=== PATIENT | male | born 1945 | race Caucasian/White ===

== ENCOUNTER 2017-11-27 09:18 | Outpatient (CLI) | payer MEDICARE, OTHER ==
[~2017-11-27 09:18] MED LIST: ASPI-1169 PO; CARV25TA PO; RAMI5CAP30 PO
[2017-11-27] MEDS ORDERED: IOHEXOL-350 100 ML VIAL IV ONE (09:55)
[2017-11-27] MEDS ORDERED: CT SWABBABLE VALVE TRANS SET 1 EA INFUS.SET MC ONE (09:55)
[2017-11-27 10:20] LABS: CALCIUM, SERUM 8.7 mg/dL (8.5-10.1); CARBON DIOXIDE 26 mmol/L (21-32); CHLORIDE 107 mmol/L (98-107); GLUCOSE 112 mg/dL (74-106); POTASSIUM 3.5 mmol/L (3.5-5.1); SODIUM SERUM 141 mmol/L (136-145); UREA NITROGEN, BLOOD 18 mg/dL (7-18)
== END 2017-11-27 23:59 | disposition home or self-care (01) ==
LOC: CT 09:18
PROVIDERS: ATTEND Internal Medicine Interventional Cardiology
DX: I25.10 Atherosclerotic heart disease of native coronary artery without angina pectoris (principal); M47.894 Other spondylosis, thoracic region
CPT/HCPCS: 36415; 75574; 80048; Q9967

== ENCOUNTER 2021-05-26 17:49 | Inpatient (IN) | payer MEDICARE, OTHER ==
[~2021-05-26] VITALS: Ht 170.2 cm; Wt 81.6 kg
--- NOTE | 2021-05-26 17:57 | NUR ---
TO ER BED 1, C/O INTERMITTENT CHEST PAIN SINCE LAST NIGHT BUT WORSE TODAY, NON RADIATING, HX OF HTN, AAOX3, BREATHING EVEN AND NON LABORED, CONNECTED TO MONITOR, CHANGED INTO A GOWN
--- NOTE | 2021-05-26 18:00 | NUR ---
SALINE LOCK ESTABLISHED, BLOOD DRAWN AND SENT TO LAB
--- NOTE | 2021-05-26 18:07 | NUR ---
ASSISTANT FINANCE MANAGER AT BEDSIDE
[2021-05-26 18:16] LABS: BASOPHILS % (AUTO) 0.5 % (0.0-2.0); EOSINOPHILS % (AUTO) 0.7 % (0.0-6.0); HEMATOCRIT 39 % (39-51); HEMOGLOBIN 13.2 g/dL (13.5-17.5); LYMPHOCYTES % (AUTO) 31.6 % (20.0-44.0); MEAN CORPUSCULAR HGB CONC 34 g/dl (31.0-36.0); MEAN CORPUSCULAR VOLUME 94 fL (80-96); MONOCYTES # (AUTO) 0.3 K/uL (0.1-1.30); MONOCYTES % (AUTO) 5.6 % (2.0-12.0); NEUTROPHILS # (AUTO) 3.8 K/uL (1.8-8.9); NEUTROPHILS % (AUTO) 61.6 % (43.0-81.0); PLATELET COUNT (AUTO) 154 K/uL (150-450); WHITE BLOOD COUNT (AUTO) 6.2 K/uL (4.3-11.0)
[2021-05-26 18:33] LABS: CALCIUM, SERUM 8.6 mg/dL (8.5-10.1); CARBON DIOXIDE 24 mmol/L (21-32); CHLORIDE 109 mmol/L (98-107); GLUCOSE 109 mg/dL (74-106); POTASSIUM 3.9 mmol/L (3.5-5.1); SODIUM SERUM 143 mmol/L (136-145); UREA NITROGEN, BLOOD 18 mg/dL (7-18)
--- NOTE | 2021-05-26 18:50 | NUR ---
DR. VENCES SPEAKING WITH DR. ORTIZ.
--- NOTE | 2021-05-26 19:09 | NUR ---
MOVE SHEET SUBMITTED.
--- NOTE | 2021-05-26 19:30 | NUR ---
MRSA SWAB COLLECTED AND SENT TO LAB. PATIENT'S BELONGINGS LIST DONE.
--- NOTE | 2021-05-26 19:34 | NUR ---
COVID SWAB SENT TO LAB
--- NOTE | 2021-05-26 19:37 | NUR ---
[facility] CALLED HAND MARKER PAGED.
--- NOTE | 2021-05-26 19:45 | NUR ---
CALLED HOUSE SUP FOR TELE BED
--- NOTE | 2021-05-26 20:26 | NUR ---
308-2 [facility]
--- NOTE | 2021-05-26 20:31 | NUR ---
GAVE REPORT TO SUJEY PULIDO FOR ESTEFANY
[2021-05-26 20:40] VITALS: BP 135/79
--- NOTE | 2021-05-26 20:55 | NUR ---
[employer] CONSULTANT ADMITTING NOTE RECEIVED REPORT FROM GRACE NESBITT RN AND PT CAME TO 308-1 2040 PT A/OX4; ABLE TO MAKE NEEDS KNOWN. TOLERATING R/A WELL WITH NO RESPIRATORY DISTRESS OR SOB. DENIES PAIN AT THIS PAIN. RAC #18GS/L PATENT AND INTACT. EXTERNAL ENTRY LEVEL BUYER READS SR AT 69. ORIENTED PATIENT STAFF, ROOM ,AND UNIT. SAFETY MEASURES IN PLACE: BED IN LOWEST LOCKED POSITION, SR UPX2, CALL LIGHT WITHIN EASY REACH. PT IN STABLE CONDITION. NOTIFIED [facility] TECHNICIAN OF ADMISSION.
[2021-05-26] MEDS ORDERED: ONDANSETRON HCL/PF 4 MG/2 ML VIAL IVP PRN (21:00)
[2021-05-26] MEDS ORDERED: ACETAMINOPHEN 325 MG TABLET PO PRN (21:00)
[2021-05-26] MEDS ORDERED: NITROGLYCERIN 0.4 MG/TAB BOTTLE SL PRN (21:00)
[2021-05-26] MEDS ORDERED: ENOXAPARIN SODIUM 40 MG/0.4 ML DISP.SYRIN SQ SCH (21:00)
[2021-05-26] MEDS ORDERED: CARVEDILOL 12.5 MG TABLET PO SCH (21:30)
[2021-05-27] VITALS: BP 94/90
[2021-05-27 05:00] VITALS: BP 101/59
--- NOTE | 2021-05-27 06:12 | NUR ---
BENEFITS PROCESSOR CLOSING NOTE PT A/OX4; ABLE TO MAKE NEEDS KNOWN. TOLERATING R/A WELL WITH NO RESPIRATORY DISTRESS OR SOB. DENIES PAIN AT THIS PAIN. RAC #18G S/L PATENT AND INTACT. EXTERNAL RN SANE READS SB AT 54. SAFETY MEASURES IN PLACE: BED IN LOWEST LOCKED POSITION, SR UPX2, CALL LIGHT WITHIN EASY REACH. PT IN STABLE CONDITION; WILL ENDORSE PLAN OF CARE TO ONCOMING MORNING RN
[2021-05-27 06:17] LABS: BASOPHILS % (AUTO) 0.7 % (0.0-2.0); EOSINOPHILS % (AUTO) 3.3 % (0.0-6.0); HEMATOCRIT 35 % (39-51); HEMOGLOBIN 12.1 g/dL (13.5-17.5); LYMPHOCYTES # (AUTO) 1.7 K/uL (0.8-4.8); LYMPHOCYTES % (AUTO) 43.2 % (20.0-44.0); MEAN CORPUSCULAR HGB CONC 35 g/dl (31.0-36.0); MEAN CORPUSCULAR VOLUME 93 fL (80-96); MONOCYTES # (AUTO) 0.3 K/uL (0.1-1.30); MONOCYTES % (AUTO) 8.1 % (2.0-12.0); NEUTROPHILS # (AUTO) 1.8 K/uL (1.8-8.9); NEUTROPHILS % (AUTO) 44.7 % (43.0-81.0); PLATELET COUNT (AUTO) 134 K/uL (150-450); RED BLOOD CELL COUNT(AUTO) 3.79 MIL/uL (4.5-6.0)
[2021-05-27 06:45] LABS: CALCIUM, SERUM 7.9 mg/dL (8.5-10.1); CREATININE 0.8 mg/dL (0.6-1.3); MAGNESIUM 2.3 mg/dL (1.8-2.4); PHOSPHORUS 2.9 mg/dL (2.5-4.9); POTASSIUM 3.3 mmol/L (3.5-5.1)
--- NOTE | 2021-05-27 07:30 | NUR ---
PT RECEIVED RESTING COMFORTABLY IN BED. NO S/S OR C/O PAIN OR DISTRESS NOTED. SIDE RAILS UP X2, CALL LIGHT LEFT WITHIN REACH. WILL CONTINUE PLAN OF CARE.
[2021-05-27 08:00] VITALS: BP 117/72
[2021-05-27] MEDS ORDERED: POTASSIUM CHLORIDE 20 MEQ POWDER PACKET PO ONE ×2 (08:00→10:30)
[2021-05-27] MEDS ORDERED: IOHEXOL-350 100 ML VIAL IV ONE (08:20)
[2021-05-27] MEDS ORDERED: IV NS 0.9% 250 ML IV ONE (08:21)
[2021-05-27] MEDS ORDERED: METOPROLOL TARTRATE INJ 5 MG/5 ML AMPUL ONE (08:40)
[2021-05-27] MEDS ORDERED: NITROGLYCERIN 0.4 MG/TAB BOTTLE ONE (08:40)
--- NOTE | 2021-05-27 08:47 | NUR ---
RN NOTES: Post CTA: Patient able to tolerate the procedure with no adverse effect noted. Patient remains stable with no distress noted. patient sent back to his room and Report given to primary RN at bedside.
[2021-05-27] MEDS ORDERED: NITROGLYCERIN 0.4 MG/TAB BOTTLE SL ONE (09:00)
[2021-05-27] MEDS ORDERED: ASPIRIN 81 MG TAB.CHEW PO SCH (09:00)
[2021-05-27] MEDS ORDERED: CARVEDILOL 12.5 MG TABLET PO SCH (09:00)
[2021-05-27] MEDS ORDERED: ATORVASTATIN 40 MG TABLET PO SCH (09:00)
[2021-05-27] MEDS ORDERED: METOPROLOL TARTRATE INJ 5 MG/5 ML AMPUL IVP PRN (09:00)
[2021-05-27] MEDS ORDERED: RAMIPRIL 5 MG CAPSULE PO SCH (09:00)
[2021-05-27] MEDS ORDERED: EZET10TA32 PO (09:41)
[2021-05-27] MEDS ORDERED: ATOR10TA PO (09:41)
[2021-05-27] MEDS ORDERED: PRED5TAB PO (09:41)
[2021-05-27] MEDS ORDERED: ABIR250T PO (09:41)
[2021-05-27] MEDS ORDERED: POTA20TA83 PO (09:41)
[2021-05-27] MEDS ORDERED: CHOL100062 PO (09:41)
[2021-05-27] MEDS ORDERED: AMLO-213 PO (09:41)
[2021-05-27 12:00] VITALS: BP 132/80
--- NOTE | 2021-05-27 13:46 | NUR ---
DISCHARGE INSTRUCTIONS GIVEN ORDERED. ENCOURAGED TO FOLLOW UP WITH PMD INSTRUCTED. ALL QUESTIONS AND CONCERNS ADDRESSED. PATIENT VERBALIZED UNDERSTANDING. MEDICATION RECONCILIATION FORM COMPLETED AND COPY GIVEN TO PATIENT. IV REMOVED WITH CATHETER INTACT. PRESSURE DRESSING APPLIED. TELE UNIT RETURNED TO STATION. PATIENT TAKEN TO VEHICLE WITH ALL PERSONAL BELONGINGS. NO DISTRESS NOTED AT TIME OF DEPARTURE.
== END 2021-05-27 13:50 | disposition home or self-care (01) | DRG 303 ==
LOC: ER 17:53 → TELE 20:29
PROVIDERS: ADMIT Nurse Practitioner Acute Care; ATTEND Family Medicine
DX: I25.118 Atherosclerotic heart disease of native coronary artery with other forms of angina pectoris (principal); I10 Essential (primary) hypertension; Z95.5 Presence of coronary angioplasty implant and graft; I71.4 Abdominal aortic aneurysm, without rupture; Z20.822 Contact with and (suspected) exposure to COVID-19; Z85.46 Personal history of malignant neoplasm of prostate; Z98.890 Other specified postprocedural states; Z79.82 Long term (current) use of aspirin; Z79.899 Other long term (current) drug therapy; D72.819 Decreased white blood cell count, unspecified; D63.8 Anemia in other chronic diseases classified elsewhere; R73.9 Hyperglycemia, unspecified; Z86.79 Personal history of other diseases of the circulatory system; Z90.79 Acquired absence of other genital organ(s); T38.0X5D Adverse effect of glucocorticoids and synthetic analogues, subsequent encounter
CPT/HCPCS: 36415; 71045-TC; 75574; 80048-TC; 80061-TC; 83735-TC; 84100-TC; 84484-TC; 85025-TC; 87081-TC; 93307-TC; C9803; G0378; J1650; J3490; J7050; Q9967